=== PATIENT | male | born 1945 | race African-American/Black ===

== ENCOUNTER 2017-11-12 13:59 | Inpatient (IN) | payer MEDICARE, MEDICAID ==
[~2017-11-12] VITALS: Ht 165.1 cm; Wt 74.8 kg
[~2017-11-12 13:59] MED LIST: ACET-2178 PO; ASPI-1159 PO; CHOL100046 GT; FERR220S13 GT; FOLI-43 GT; LACT10SO6 MT; METO25TA6 GT; OMEP20TA15 GT; P20 GT; POLY17PO3 GT; VIT500LI GT; XALAO EACHEYE
[2017-11-12 15:09] LABS: BASOPHILS % 0.3 % (0.0-2.0); EOSINOPHILS % 0.8 % (0.0-5.0); HEMATOCRIT. 29.9 % (42.0-52.0); HEMOGLOBIN. 9.7 g/dL (14.0-18.0); LYMPHOCYTES % 7.9 % (20.0-50.0); MEAN CORPUSCULAR VOLUME 86.8 fL (80.0-94.0); MEAN PLATELET VOLUME 8.8 fl (7.4-10.4); MONOCYTES % 6.5 % (2.0-8.0); NEUTROPHILS % 84.5 % (40.0-76.0); PLATELET 296 x1000/uL (130-400); RED BLOOD CELL COUNT 3.44 mill/uL (4.7-6.1); RED CELL DISTRIBUTION WIDTH 16.4 % (11.6-14.6)
[2017-11-12 15:13] LABS: CHLORIDE 115 mEq/L (98-107)
[2017-11-12 15:15] LABS: INR 1.1; PROTHROMBIN TIME 11.9 sec (9.4-11.6)
[2017-11-12] MEDS ORDERED: SODIUM CHLORIDE 0.9% 1,000 ML IV ONE (16:01)
[2017-11-12 16:36] LABS: CLARITY URINE CLEAR (CLEAR); COLOR URINE YELLOW (YELLOW); KETONES URINE 1+ (NEGATIVE); LEUKOCYTE ESTERASE URINE TRACE (NEGATIVE); NITRITE URINE NEGATIVE (NEGATIVE); OCCULT BLOOD URINE 1+ (NEGATIVE); PH URINE >=9.0 (4.5-8.0); PROTEIN URINE 2+ (NEGATIVE)
[2017-11-12] MEDS ORDERED: CLINDAMYCIN 600 MG in DEXTROSE 5% WATER 50 ML IV ONE (17:45)
[2017-11-12] MEDS ORDERED: CLINDAMYCIN 600MG PREMIX 50 ML IV SCH (18:00)
[2017-11-12] MEDS ORDERED: MORPHINE SULFATE 4 MG/ML CPJ (NOT FOR IM USE) IV PRN (18:30)
[2017-11-12] MEDS ORDERED: DIPHENHYDRAMINE 50MG/ML VIAL IV PRN (18:30)
[2017-11-12] MEDS ORDERED: IPRATROPIUM/ALBUTEROL 0.5-3(2.5)MG/3ML NEB INH PRN (18:30)
[2017-11-12] MEDS ORDERED: LORAZEPAM 2MG/ML CPJ IV PRN (18:30)
[2017-11-12] MEDS ORDERED: ONDANSETRON HCL 4MG/2ML VIAL IV PRN (18:30)
[2017-11-12] MEDS ORDERED: ACETAMINOPHEN 650MG SUPP PR PRN (18:30)
[2017-11-12] MEDS ORDERED: DEXTROSE 50% WATER 50ML SYRINGE IV ONE (21:15)
[2017-11-12 23:00] VITALS: BP 159/92
[2017-11-13] VITALS: BP 159/92
[2017-11-13] MEDS ORDERED: HYDRALAZINE 20MG/ML VIAL IV PRN (01:25)
[2017-11-13] MEDS ORDERED: DEXTROSE 5% WATER 1,000 ML IV SCH (01:27)
[2017-11-13] MEDS ORDERED: VANCOMYCIN 1500MG in DEXTROSE 5% WATER 250ML IV SCH (02:00)
[2017-11-13] MEDS ORDERED: KCL 20MEQ/100ML PREMIX 100 ML IV SCH (02:00)
[2017-11-13] MEDS ORDERED: LORAZEPAM 2MG/ML CPJ IV PRN (02:11)
[2017-11-13] MEDS: PIPERACILLIN/TAZ 3.375G PREMIX 50 ML IV SCH ×3 (03:09→18:00)
[2017-11-13 06:37] LABS: BASOPHILS % 0.4 % (0.0-2.0); EOSINOPHILS % 1.2 % (0.0-5.0); HEMATOCRIT. 31.1 % (42.0-52.0); HEMOGLOBIN. 10.1 g/dL (14.0-18.0); MEAN CORPUSCULAR HEMOGLOBIN 28.3 pg (28.0-32.0); MEAN CORPUSCULAR VOLUME 87.5 fL (80.0-94.0); MEAN PLATELET VOLUME 9.1 fl (7.4-10.4); MONOCYTES % 6.2 % (2.0-8.0); NEUTROPHILS % 84.2 % (40.0-76.0); PLATELET 284 x1000/uL (130-400); RED BLOOD CELL COUNT 3.56 mill/uL (4.7-6.1); RED CELL DISTRIBUTION WIDTH 16.8 % (11.6-14.6)
[2017-11-13 07:16] LABS: CHLORIDE 116 mEq/L (98-107)
[2017-11-13 07:25] LABS: LDL CHOLESTEROL 63 mg/dL (5-100)
[2017-11-13 07:26] LABS: HDL CHOLESTEROL 36 mg/dL (40-59); T4 FREE 1.51 ng/dL (0.76-1.46)
[2017-11-13 08:00] VITALS: BP 158/83
[2017-11-13] MEDS: PANTOPRAZOLE SODIUM 40 MG/VIAL IV SCH (09:13)
[2017-11-13] MEDS: ENOXAPARIN 40MG/0.4ML SYR SUBCUT SCH (09:13)
[2017-11-13 12:00] VITALS: BP 127/68
[2017-11-13] MEDS ORDERED: KCL 20MEQ/100ML PREMIX 100 ML IV NR (12:00)
[2017-11-13 16:00] VITALS: BP 158/54
[2017-11-13 16:25] LABS: CHLORIDE 116 mEq/L (98-107)
[2017-11-13] MEDS ORDERED: POTASSIUM CHLORIDE 20MEQ/PACKET GT NR (18:00)
[2017-11-13 20:00] VITALS: BP 124/74
[2017-11-13] MEDS: VANCOMYCIN 500 MG PREMIX 100 ML IV SCH (21:13)
[2017-11-14] VITALS: BP 134/75
[2017-11-14] MEDS: DEXT 5%/0.45% NACL 1000ML 1,000 ML IV SCH ×2 (01:46→13:37)
[2017-11-14 04:00] VITALS: BP 142/76
[2017-11-14] MEDS: PIPERACILLIN/TAZ 3.375G PREMIX 50 ML IV SCH ×3 (05:34→20:20)
[2017-11-14 06:09] LABS: HEMATOCRIT 29.5 % (42.0-52.0); HEMOGLOBIN 9.7 g/dL (14.0-18.0); MEAN CORPUSCULAR HEMOGLOBIN 28.9 pg (28.0-32.0); MEAN CORPUSCULAR VOLUME 87.8 fL (80.0-94.0); PLATELET 247 x1000/uL (130-400); RED BLOOD CELL COUNT 3.37 mill/uL (4.7-6.1); RED CELL DISTRIBUTION WIDTH 16.8 % (11.6-14.6)
[2017-11-14 06:21] LABS: CHLORIDE 119 mEq/L (98-107)
[2017-11-14 08:00] VITALS: BP 128/66
[2017-11-14] MEDS: VANCOMYCIN 500 MG PREMIX 100 ML IV SCH ×2 (10:43→20:44)
[2017-11-14] MEDS: PANTOPRAZOLE SODIUM 40 MG/VIAL IV SCH (10:43)
[2017-11-14] MEDS: ENOXAPARIN 40MG/0.4ML SYR SUBCUT SCH (10:44)
[2017-11-14 12:00] VITALS: BP 130/70
[2017-11-14 16:00] VITALS: BP 126/76
[2017-11-14 19:56] VITALS: BP 148/76
[2017-11-15] VITALS: BP 138/77
[2017-11-15] MEDS: PIPERACILLIN/TAZ 3.375G PREMIX 50 ML IV SCH ×3 (03:30→20:31)
[2017-11-15] MEDS: DEXT 5%/0.45% NACL 1000ML 1,000 ML IV SCH ×2 (03:31→18:59)
[2017-11-15 04:00] VITALS: BP 140/69
[2017-11-15 08:00] VITALS: BP 138/74
[2017-11-15 08:43] LABS: HEMOGLOBIN 10.1 g/dL (14.0-18.0); MEAN CORPUSCULAR HEMOGLOBIN 28.6 pg (28.0-32.0); MEAN CORPUSCULAR VOLUME 87.8 fL (80.0-94.0); PLATELET 251 x1000/uL (130-400); RED BLOOD CELL COUNT 3.53 mill/uL (4.7-6.1); RED CELL DISTRIBUTION WIDTH 17.5 % (11.6-14.6)
[2017-11-15 08:48] LABS: CHLORIDE 116 mEq/L (98-107)
[2017-11-15] MEDS: DOCUSATE SODIUM SUGAR FREE 100MG/10ML UDC NG SCH (09:00)
[2017-11-15] MEDS: VANCOMYCIN 500 MG PREMIX 100 ML IV SCH (09:24)
[2017-11-15] MEDS: ENOXAPARIN 40MG/0.4ML SYR SUBCUT SCH (09:24)
[2017-11-15] MEDS: PANTOPRAZOLE SODIUM 40 MG/VIAL IV SCH (09:25)
[2017-11-15 12:00] VITALS: BP 147/82
[2017-11-15] MEDS: KCL 20MEQ/100ML PREMIX 100 ML IV SCH ×2 (12:34→13:35)
[2017-11-15] MEDS ORDERED: CARVEDILOL 3.125 MG TABLET GT NR (14:45)
[2017-11-15 16:00] VITALS: BP_SYST 113; BP_SYST 128; BP_DIAS 50; BP_DIAS 75
[2017-11-15 20:08] VITALS: BP 128/68
[2017-11-15] MEDS ORDERED: CARVEDILOL 3.125 MG TABLET GT SCH (21:00)
[2017-11-16] VITALS: BP 134/68
[2017-11-16 04:00] VITALS: BP 126/69
[2017-11-16] MEDS: PIPERACILLIN/TAZ 3.375G PREMIX 50 ML IV SCH ×3 (04:18→20:00)
[2017-11-16 07:54] LABS: HEMATOCRIT 30.9 % (42.0-52.0); MEAN CORPUSCULAR HEMOGLOBIN 28.2 pg (28.0-32.0); MEAN CORPUSCULAR VOLUME 87.3 fL (80.0-94.0); PLATELET 223 x1000/uL (130-400); RED BLOOD CELL COUNT 3.54 mill/uL (4.7-6.1); RED CELL DISTRIBUTION WIDTH 17.3 % (11.6-14.6)
[2017-11-16 08:00] VITALS: BP 134/59
[2017-11-16 12:00] VITALS: BP 151/70
[2017-11-16] MEDS: PANTOPRAZOLE SODIUM 40 MG/VIAL IV SCH (12:00)
[2017-11-16] MEDS: ENOXAPARIN 40MG/0.4ML SYR SUBCUT SCH (12:00)
[2017-11-16] MEDS: VANCOMYCIN 500 MG PREMIX 100 ML IV SCH (12:01)
[2017-11-16] MEDS: DOCUSATE SODIUM SUGAR FREE 100MG/10ML UDC NG SCH (12:01)
[2017-11-16 16:00] VITALS: BP 147/80
[2017-11-16] MEDS: DEXT 5%/0.45% NACL 1000ML 1,000 ML IV SCH (16:14)
[2017-11-16 20:00] VITALS: BP 150/68
[2017-11-16] MEDS: CARVEDILOL 6.25 MG TABLET GT SCH (21:01)
[2017-11-17] VITALS: BP 150/75
[2017-11-17 04:47] VITALS: BP 147/70
[2017-11-17 07:58] VITALS: BP 175/83
[2017-11-17] MEDS: DOCUSATE SODIUM SUGAR FREE 100MG/10ML UDC NG SCH (09:00)
[2017-11-17] MEDS: CARVEDILOL 6.25 MG TABLET GT SCH ×2 (09:00→21:08)
[2017-11-17] MEDS: VANCOMYCIN 500 MG PREMIX 100 ML IV SCH (09:00)
[2017-11-17] MEDS: PANTOPRAZOLE SODIUM 40 MG/VIAL IV SCH (09:00)
[2017-11-17] MEDS: ENOXAPARIN 40MG/0.4ML SYR SUBCUT SCH (09:23)
[2017-11-17] MEDS ORDERED: LIDOCAINE HCL/PF 1% 10 MG/ML 5ML VIAL ONE (10:59)
[2017-11-17] MEDS ORDERED: SODIUM BICARBONATE 4% (2.4MEQ) 5ML VIAL IV ONE (11:00)
[2017-11-17 11:07] VITALS: BP 158/72
[2017-11-17] MEDS: PIPERACILLIN/TAZ 3.375G PREMIX 50 ML IV SCH ×2 (12:00→21:07)
[2017-11-17] MEDS: NITROGLYCERIN OINT 1GM/INCH UDPKT TD SCH ×2 (12:30→21:00)
[2017-11-17 16:00] LABS: HEMATOCRIT 30.1 % (42.0-52.0); HEMOGLOBIN 9.8 g/dL (14.0-18.0); MEAN CORPUSCULAR HEMOGLOBIN 28.6 pg (28.0-32.0); MEAN CORPUSCULAR VOLUME 87.7 fL (80.0-94.0); PLATELET 212 x1000/uL (130-400); RED BLOOD CELL COUNT 3.44 mill/uL (4.7-6.1); RED CELL DISTRIBUTION WIDTH 17.2 % (11.6-14.6)
[2017-11-17 16:04] LABS: CHLORIDE 111 mEq/L (98-107)
[2017-11-17] MEDS ORDERED: POTASSIUM CHLORIDE INJ 40 MEQ in DEXT 5% WATER 250 ML IV ONE (17:15)
[2017-11-17] MEDS ORDERED: VANCOMYCIN 750 MG PREMIX 150 ML IV SCH (18:00)
[2017-11-17 19:54] VITALS: BP 138/81
[2017-11-17] MEDS: KCL 20MEQ/100ML PREMIX 100 ML IV SCH ×2 (20:17→22:56)
[2017-11-18] VITALS: BP 126/50
[2017-11-18 00:02] VITALS: BP 126/50
[2017-11-18] MEDS: KCL 20MEQ/100ML PREMIX 100 ML IV SCH (00:30)
[2017-11-18] MEDS: PIPERACILLIN/TAZ 3.375G PREMIX 50 ML IV SCH ×2 (03:41→13:58)
[2017-11-18 04:00] VITALS: BP 137/45
[2017-11-18] MEDS: DEXT 5%/0.45% NACL 1000ML 1,000 ML IV SCH ×3 (05:04→10:08)
[2017-11-18 07:44] LABS: CHLORIDE 110 mEq/L (98-107)
[2017-11-18 07:50] LABS: HEMATOCRIT 30.6 % (42.0-52.0); HEMOGLOBIN 10.2 g/dL (14.0-18.0); MEAN CORPUSCULAR HEMOGLOBIN 28.7 pg (28.0-32.0); MEAN CORPUSCULAR VOLUME 86.4 fL (80.0-94.0); PLATELET 212 x1000/uL (130-400); RED BLOOD CELL COUNT 3.54 mill/uL (4.7-6.1); RED CELL DISTRIBUTION WIDTH 17.1 % (11.6-14.6)
[2017-11-18 08:00] VITALS: BP_SYST 106; BP_SYST 152; BP_DIAS 65; BP_DIAS 71
[2017-11-18] MEDS: DOCUSATE SODIUM SUGAR FREE 100MG/10ML UDC NG SCH (10:18)
[2017-11-18] MEDS: CARVEDILOL 6.25 MG TABLET GT SCH (10:19)
[2017-11-18] MEDS: PANTOPRAZOLE SODIUM 40 MG/VIAL IV SCH (10:21)
[2017-11-18] MEDS: ENOXAPARIN 40MG/0.4ML SYR SUBCUT SCH (10:21)
[2017-11-18] MEDS: NITROGLYCERIN OINT 1GM/INCH UDPKT TD SCH (11:17)
[2017-11-18] MEDS: METOCLOPRAMIDE 10MG/10 ML UDC PO SCH ×2 (13:58→18:33)
[2017-11-18 15:30] VITALS: BP 138/62
[2017-11-18] MEDS ORDERED: CEFTRIAXONE 1 G PREMIX 50 ML IV SCH (17:00)
== END 2017-11-18 19:21 | DRG 393 ==
LOC: ER 14:50 → 6WST 17:49 → EDBEDREQ 17:50 → SUPCPDRO 18:12 → ENRESERV 19:53
PROVIDERS: ADMIT Internal Medicine; ATTEND Internal Medicine
PROC: 02HV33Z Insertion of Infusion Device into Superior Vena Cava, Percutaneous Approach (ICD-10-PCS; principal; 2017-11-17)
PROC: B5181ZA Fluoroscopy of Superior Vena Cava using Low Osmolar Contrast, Guidance (ICD-10-PCS; 2017-11-17)
PROC: B548ZZA Ultrasonography of Superior Vena Cava, Guidance (ICD-10-PCS; 2017-11-17)
DX: K94.22 Gastrostomy infection (principal); G93.40 Encephalopathy, unspecified; E87.0 Hyperosmolality and hypernatremia; N39.0 Urinary tract infection, site not specified; L03.311 Cellulitis of abdominal wall; I69.354 Hemiplegia and hemiparesis following cerebral infarction affecting left non-dominant side; I13.0 Hypertensive heart and chronic kidney disease with heart failure and stage 1 through stage 4 chronic kidney disease, or unspecified chronic kidney disease; D68.59 Other primary thrombophilia; I50.22 Chronic systolic (congestive) heart failure; N17.9 Acute kidney failure, unspecified; I42.9 Cardiomyopathy, unspecified; I47.2 Ventricular tachycardia; I48.92 Unspecified atrial flutter; J44.1 Chronic obstructive pulmonary disease with (acute) exacerbation; R13.10 Dysphagia, unspecified; K57.30 Diverticulosis of large intestine without perforation or abscess without bleeding; E87.6 Hypokalemia; D64.9 Anemia, unspecified; E86.0 Dehydration; N18.9 Chronic kidney disease, unspecified; D63.8 Anemia in other chronic diseases classified elsewhere; I08.1 Rheumatic disorders of both mitral and tricuspid valves; E11.22 Type 2 diabetes mellitus with diabetic chronic kidney disease; E78.5 Hyperlipidemia, unspecified; K94.23 Gastrostomy malfunction; K22.2 Esophageal obstruction; K21.9 Gastro-esophageal reflux disease without esophagitis; I48.0 Paroxysmal atrial fibrillation; G40.909 Epilepsy, unspecified, not intractable, without status epilepticus; F03.90 Unspecified dementia, unspecified severity, without behavioral disturbance, psychotic disturbance, mood disturbance, and anxiety; Y83.3 Surgical operation with formation of external stoma as the cause of abnormal reaction of the patient, or of later complication, without mention of misadventure at the time of the procedure; Y92.89 Other specified places as the place of occurrence of the external cause; Z95.0 Presence of cardiac pacemaker; Z93.3 Colostomy status; Z89.512 Acquired absence of left leg below knee; Z79.899 Other long term (current) drug therapy; Z79.52 Long term (current) use of systemic steroids
CPT/HCPCS: 36415; 36569; 71045; 74176; 76937; 77001; 80048; 80053; 80061; 80202; 81003; 82962; 83605; 83735; 84132; 84439; 84481; 85025; 85027; 85610; 87040; 87086; 92610; 93005; 96365; 96375; 99285; C1725; C1893; C9113; J0696; J1650; J2060; J2543; J3370; J3480; J3490; J7030; J7050; J7060; J7070; J8597